=== PATIENT | male | born 1980 | race Two or more races ===

== ENCOUNTER 2021-08-24 18:34 | Inpatient (IN) | payer OTHER ==
[~2021-08-24] VITALS: Ht 182.9 cm; Wt 129.7 kg
[2021-08-27] MEDS ORDERED: AMOX1TAB5 PO (11:31)
[2021-08-27] MEDS ORDERED: PROTONIX40 MG PO (11:31)
== END 2021-08-27 13:34 | disposition home or self-care (01) | DRG 390 ==
LOC: ER 18:34 → SURG 08-25 07:05
PROVIDERS: ADMIT Surgery; ATTEND Surgery
DX: K56.690 Other partial intestinal obstruction (principal); R10.32 Left lower quadrant pain; Z20.822 Contact with and (suspected) exposure to COVID-19